=== PATIENT | female | born 1945 | race Caucasian/White ===

== ENCOUNTER 2017-11-14 17:22 | Inpatient (IN) | payer MEDICARE, OTHER ==
[2017-11-14 17:59] LABS: ADD MAN DIFF? NO
[2017-11-14 18:05] LABS: WHITE BLOOD COUNT 7.1 10^3/ul (4.8-10.8)
[2017-11-14 18:05] LABS: BASOPHILS % 0.6 % (0.0-2.0); EOSINOPHILS # 0.1 10^3/ul (0.0-0.5); EOSINOPHILS % 1.8 % (0.0-7.0); HEMATOCRIT 36.5 % (37.0-47.0); HEMOGLOBIN 11.9 g/dl (12.0-16.0); LYMPHOCYTES # 2.6 10^3/ul (0.8-2.9); LYMPHOCYTES % 36.5 % (15.0-51.0); MEAN CORPUSCULAR HEMOGLOBIN 28.2 pg (29.0-33.0); MEAN CORPUSCULAR HGB CONC 32.6 g/dl (32.0-37.0); MEAN CORPUSCULAR VOLUME 86.5 fl (82.0-101.0); MEAN PLATELET VOLUME 10.8 fl (7.4-10.4); MONOCYTE # 0.7 10^3/ul (0.3-0.9); NEUTROPHIL # 3.6 10^3/ul (1.6-7.5); NEUTROPHILS % 50.8 % (39.0-77.0); PLATELET COUNT 166 10^3/UL (140-415); RED BLOOD COUNT 4.22 10^6/ul (4.20-5.40); RED CELL DISTRIBUTION WIDTH 13.5 % (11.5-14.5)
[2017-11-14 18:13] LABS: ADD UMIC NO; UR ASCORBIC ACID 40 mg/dL (NEGATIVE); UR BILIRUBIN (Dip) NEGATIVE (NEGATIVE); UR BLOOD (Dip) NEGATIVE (NEGATIVE); UR CLARITY CLEAR (CLEAR); UR COLOR YELLOW (YELLOW); UR GLUCOSE (Dip) NEGATIVE (NEGATIVE); UR KETONES (Dip) NEGATIVE (NEGATIVE); UR LEUKOCYTE ESTERASE (Dip) NEGATIVE Leu/ul (NEGATIVE); UR NITRITE (Dip) NEGATIVE (NEGATIVE); UR SPECIFIC GRAVITY (Dip) 1.021 (1.003-1.030); UR TOTAL PROTEIN (Dip) NEGATIVE (NEGATIVE); UR UROBILINOGEN (Dip) NEGATIVE (NEGATIVE)
[2017-11-14 18:18] LABS: INR 0.93; PROTIME 12.5 Sec (11.9-14.9)
[2017-11-14 18:19] LABS: PARTIAL THROMBOPLASTIN TIME 25.3 Sec (25.0-35.0)
[2017-11-14] MEDS: ACETAMINOPHEN 500 MG TAB PO ×2 (18:25)
[2017-11-14 18:27] LABS: ANION GAP 13 (8-16); BLOOD UREA NITROGEN 16 mg/dl (7-20); CALCIUM 9.4 mg/dl (8.4-10.2); CARBON DIOXIDE 22 mmol/L (21-31); CHLORIDE 111 mmol/L (97-110); CHOLESTEROL 147 mg/dl (100-200); CREATININE 0.64 mg/dl (0.44-1.00); GLUCOSE 111 mg/dl (70-220); HDL CHOLESTEROL 49 mg/dl (33-92); LDL CHOLESTEROL,CALCULATED 62 mg/dl; POTASSIUM 4.4 mmol/L (3.5-5.1); SODIUM 142 mmol/L (135-144); TRIGLYCERIDES 179 mg/dl (0-149)
[2017-11-14 18:35] LABS: AMPHETAMINE/METHAMPHETAMINE Negative (NEGATIVE); BARBITURATES Negative (NEGATIVE); BENZODIAZEPINES Negative (NEGATIVE); CANNABINOIDS Negative (NEGATIVE); COCAINE Negative (NEGATIVE); OPIATES Negative (NEGATIVE)
[2017-11-14 18:41] LABS: HEMOGLOBIN A1C 5.4 % (0-5.9)
[2017-11-14 18:42] LABS: TROPONIN-I < 0.010 ng/ml (0.000-0.120)
[2017-11-14] MEDS ORDERED: ACETAMINOPHEN 325 MG TAB PO (20:00)
[2017-11-14] MEDS ORDERED: ONDANSETRON 4 MG INJ IV (20:00)
[2017-11-15] MEDS: AMLODIPINE 5 MG TAB PO (08:26)
[2017-11-15] MEDS: VALSARTAN 80 MG TAB PO ×2 (08:26→21:17)
[2017-11-15] MEDS: ENOXAPARIN 40 MG/0.4 ML SYG SC (08:29)
[2017-11-15 09:04] LABS: ADD MAN DIFF? NO
[2017-11-15 09:12] LABS: BASOPHILS % 0.7 % (0.0-2.0); EOSINOPHILS # 0.1 10^3/ul (0.0-0.5); EOSINOPHILS % 1.8 % (0.0-7.0); HEMATOCRIT 38.3 % (37.0-47.0); HEMOGLOBIN 12.3 g/dl (12.0-16.0); LYMPHOCYTES # 1.4 10^3/ul (0.8-2.9); MEAN CORPUSCULAR HEMOGLOBIN 27.8 pg (29.0-33.0); MEAN CORPUSCULAR HGB CONC 32.1 g/dl (32.0-37.0); MEAN CORPUSCULAR VOLUME 86.7 fl (82.0-101.0); MEAN PLATELET VOLUME 11.1 fl (7.4-10.4); MONOCYTE # 0.4 10^3/ul (0.3-0.9); MONOCYTES % 9.9 % (0.0-11.0); NEUTROPHIL # 2.5 10^3/ul (1.6-7.5); NEUTROPHILS % 55.4 % (39.0-77.0); PLATELET COUNT 155 10^3/UL (140-415); RED BLOOD COUNT 4.42 10^6/ul (4.20-5.40); RED CELL DISTRIBUTION WIDTH 13.5 % (11.5-14.5)
[2017-11-15 09:12] LABS: WHITE BLOOD COUNT 4.4 10^3/ul (4.8-10.8)
[2017-11-15 09:38] LABS: ANION GAP 14 (8-16); BLOOD UREA NITROGEN 13 mg/dl (7-20); CALCIUM 9.2 mg/dl (8.4-10.2); CARBON DIOXIDE 24 mmol/L (21-31); CHLORIDE 109 mmol/L (97-110); CHOL/HDL RATIO 3.1 RATIO; CHOLESTEROL 149 mg/dl (100-200); CREATININE 0.61 mg/dl (0.44-1.00); GLUCOSE 110 mg/dl (70-220); HDL CHOLESTEROL 47 mg/dl (33-92); LDL CHOLESTEROL,CALCULATED 77 mg/dl; PHOSPHORUS 3.3 mg/dl (2.5-4.9); POTASSIUM 4.1 mmol/L (3.5-5.1); SODIUM 143 mmol/L (135-144); TRIGLYCERIDES 124 mg/dl (0-149)
[2017-11-15] MEDS: ATORVASTATIN 40 MG TAB PO (21:17)
[2017-11-16] MEDS: LEVOTHYROXINE 137 MCG TAB PO (07:31)
[2017-11-16] MEDS: ASPIRIN 81 MG TAB PO (08:20)
[2017-11-16] MEDS: AMLODIPINE 5 MG TAB PO (08:20)
[2017-11-16] MEDS: VALSARTAN 80 MG TAB PO (08:21)
[2017-11-16] MEDS: ENOXAPARIN 40 MG/0.4 ML SYG SC (08:22)
[2017-11-16] MEDS ORDERED: LOSARTAN 50 MG TAB PO (09:00)
[2017-11-16] MEDS: LOSARTAN 50 MG TAB PO (10:22)
== END 2017-11-16 13:31 | disposition home or self-care (01) | DRG 69 ==
LOC: E/R 17:22 → MS4 19:37
DX: G45.9 Transient cerebral ischemic attack, unspecified (principal); E03.9 Hypothyroidism, unspecified; I10 Essential (primary) hypertension; I25.10 Atherosclerotic heart disease of native coronary artery without angina pectoris; E78.5 Hyperlipidemia, unspecified; E66.9 Obesity, unspecified; Z68.30 Body mass index [BMI] 30.0-30.9, adult; Z79.82 Long term (current) use of aspirin; Z95.5 Presence of coronary angioplasty implant and graft
CPT/HCPCS: 36415; 70450; 70551; 71045; 80048; 80061; 80307; 81003; 82962; 83036; 83735; 84100; 84443; 84484; 85025; 85610; 85730; 93005; 93306; 93880; 99291-25

== ENCOUNTER 2018-04-04 20:29 | Emergency (ER) | payer MEDICARE, OTHER ==
[2018-04-04] MEDS: IPRATROPIUM (NEB) 0.5 MG/2.5 ML AMP INH (21:42)
[2018-04-04] MEDS: ALBUTEROL 0.083% (NEB) 2.5 MG/3 ML AMP HHN (21:42)
[2018-04-04 21:50] LABS: ADD MAN DIFF? NO
[2018-04-04 22:01] LABS: BASOPHILS % 0.3 % (0.0-2.0); EOSINOPHILS # 0.1 10^3/ul (0.0-0.5); EOSINOPHILS % 0.8 % (0.0-7.0); HEMATOCRIT 34.3 % (37.0-47.0); HEMOGLOBIN 11.2 g/dl (12.0-16.0); LYMPHOCYTES # 1.9 10^3/ul (0.8-2.9); LYMPHOCYTES % 20.9 % (15.0-51.0); MEAN CORPUSCULAR HEMOGLOBIN 27.7 pg (29.0-33.0); MEAN CORPUSCULAR HGB CONC 32.7 g/dl (32.0-37.0); MEAN CORPUSCULAR VOLUME 84.9 fl (82.0-101.0); MEAN PLATELET VOLUME 10.6 fl (7.4-10.4); MONOCYTE # 0.9 10^3/ul (0.3-0.9); MONOCYTES % 10.3 % (0.0-11.0); NEUTROPHIL # 6.2 10^3/ul (1.6-7.5); NEUTROPHILS % 67.3 % (39.0-77.0); PLATELET COUNT 151 10^3/UL (140-415); RED BLOOD COUNT 4.04 10^6/ul (4.20-5.40); RED CELL DISTRIBUTION WIDTH 13.4 % (11.5-14.5)
[2018-04-04 22:01] LABS: WHITE BLOOD COUNT 9.2 10^3/ul (4.8-10.8)
[2018-04-04 22:16] LABS: LACTIC ACID 0.8 mmol/L (0.5-2.0)
[2018-04-04 22:17] LABS: ALANINE AMINOTRANSFERASE 32 IU/L (13-69); ALBUMIN 3.9 g/dl (3.3-4.9); ALBUMIN/GLOBULIN RATIO 1.34; ALKALINE PHOSPHATASE 110 IU/L (42-121); ANION GAP 8 (5-13); ASPARTATE AMINO TRANSFERASE 26 IU/L (15-46); BILIRUBIN,INDIRECT 0.4 mg/dl (0-1.1); BILIRUBIN,TOTAL 0.4 mg/dl (0.2-1.3); BLOOD UREA NITROGEN 13 mg/dl (7-20); CARBON DIOXIDE 26 mmol/L (21-31); CHLORIDE 105 mmol/L (97-110); CREATININE 0.58 mg/dl (0.44-1.00); Estimated GFR > 60 mL/min (>60); GLUCOSE 108 mg/dl (70-220); SODIUM 139 mmol/L (135-144); TOTAL PROTEIN 6.8 g/dl (6.1-8.1)
[2018-04-04 22:28] LABS: B-TYPE NATRIURETIC PEPTIDE 262 PG/ML (0-125); TROPONIN-I < 0.012 ng/ml (0.000-0.120)
[2018-04-04] MEDS: AZITHROMYCIN 250 MG TAB PO (23:12)
[2018-04-04] MEDS: CEFTRIAXONE 1 GM/50 ML (PMX) 50 ML IVPB (23:12)
== END 2018-04-04 23:50 | disposition home or self-care (01) ==
LOC: E/R 23:50
DX: J18.9 Pneumonia, unspecified organism (principal); I10 Essential (primary) hypertension; Z79.82 Long term (current) use of aspirin; Z86.73 Personal history of transient ischemic attack (TIA), and cerebral infarction without residual deficits; Z98.61 Coronary angioplasty status
CPT/HCPCS: 36415; 71045; 80053; 83605; 83880; 84484; 85025; 87040; 93005; 94664; 96365; 99285-25

== ENCOUNTER 2018-07-23 10:14 | Emergency (ER) | payer MEDICARE, OTHER ==
[2018-07-23] MEDS: ONDANSETRON (ODT) 4 MG TAB ODT (12:40)
[2018-07-23] MEDS: KETOROLAC 30 MG INJ IM (12:40)
[2018-07-23] MEDS: ACETAMINOPHEN 500 MG TAB PO (12:40)
== END 2018-07-23 13:41 | disposition home or self-care (01) ==
LOC: FTE 10:14
DX: J06.9 Acute upper respiratory infection, unspecified (principal); I10 Essential (primary) hypertension; Z79.82 Long term (current) use of aspirin; Z86.73 Personal history of transient ischemic attack (TIA), and cerebral infarction without residual deficits; Z98.61 Coronary angioplasty status
CPT/HCPCS: 71045; 87400; 99284-25